=== PATIENT | male | born 1995 | race African-American/Black ===

== ENCOUNTER 2024-05-07 21:33 | Emergency (ER) | payer OTHER ==
[~2024-05-07] VITALS: Ht 188 cm; Wt 95.5 kg
[2024-05-07 21:36] VITALS: BP 140/87; PULSE 72; O2SAT 99
[2024-05-07 23:34] VITALS: TEMP 98.7
[2024-05-07 23:43] VITALS: RESP 18
[2024-05-07] MEDS: ketorolac trometh 30MG/ML vial 30 MG/ML VIAL IM ONE (23:43)
== END 2024-05-07 23:48 | disposition home or self-care (01) ==
LOC: ER 21:34
DX: G43.909 Migraine, unspecified, not intractable, without status migrainosus (principal)
CPT/HCPCS: 96372; 99283; J1885